=== PATIENT | male | born 2000 | race Caucasian/White ===

== ENCOUNTER 2024-06-25 22:16 | Emergency (ER) | payer OTHER, MEDICAID ==
[~2024-06-25] VITALS: Ht 172.7 cm; Wt 104.3 kg
[2024-06-25] MEDS: HYDROcodone-ACET 5/325MG TAB PO ONE (22:56)
[2024-06-25] MEDS ORDERED: IBUP-1455 PO (23:22)
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
[2024-06-26 00:01] VITALS: BP 143/106; PULSE 125; RESP 16; TEMP 98.2; O2SAT 98
--- NOTE | 2024-06-26 00:39 | DVH ---
CLINICAL INDICATION: crush injury TECHNIQUE: XY R TIB FIB XRAY Comparison: None FINDINGS/IMPRESSION: : There is no evidence of acute fracture or dislocation. Calcified atherosclerosis. Soft tissues are intact.
== END 2024-06-26 00:20 | disposition home or self-care (01) ==
LOC: ER 22:16
DX: S87.81XA Crushing injury of right lower leg, initial encounter (principal); W23.0XXA Caught, crushed, jammed, or pinched between moving objects, initial encounter; Y93.89 Activity, other specified; Y92.89 Other specified places as the place of occurrence of the external cause; Y99.8 Other external cause status
CPT/HCPCS: 73590

== ENCOUNTER 2024-07-03 21:42 | Emergency (ER) | payer MEDICAID, OTHER ==
[~2024-07-03] VITALS: Ht 175.3 cm; Wt 103.5 kg
[~2024-07-03 21:42] MED LIST: IBUP-1455 PO
[2024-07-03 22:01] VITALS: BP 154/97; PULSE 112; RESP 18; O2SAT 99
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
== END 2024-07-04 03:42 | disposition home or self-care (01) ==
LOC: ER 21:42
DX: S87.81XA Crushing injury of right lower leg, initial encounter (principal); M25.571 Pain in right ankle and joints of right foot; Z79.1 Long term (current) use of non-steroidal anti-inflammatories (NSAID); V89.2XXA Person injured in unspecified motor-vehicle accident, traffic, initial encounter; Y93.89 Activity, other specified; Y92.410 Unspecified street and highway as the place of occurrence of the external cause; Y99.8 Other external cause status
CPT/HCPCS: 73700